=== PATIENT | female | born 1995 | race Asian ===

== ENCOUNTER 2019-08-19 18:26 | Emergency (ER) | payer SELFPAY ==
[~2019-08-19] VITALS: Ht 157.5 cm; Wt 52.2 kg
[2019-08-19] MEDS ORDERED: IV NS 0.9% 1,000 ML BAG IV ONE (19:00)
[2019-08-19] MEDS ORDERED: MORPHINE SULFATE INJ 2 MG/ML DISP.SYRIN IV ONE (19:00)
[2019-08-19] MEDS ORDERED: ONDANSETRON HCL/PF 4 MG/2 ML VIAL IVP ONE (19:00)
--- NOTE | 2019-08-19 19:00 | NUR ---
RLQ ABDOMINAL PAIN, GENERALIZED BODY ACHES, NO BM X 2 DAYS. PATIENT A/OX4, BREATHING EVEN AND UNLABORED, NO SOB NOTED, NEEDS ATTENDED, KEPT COMFORTABLE, CHANGED INTO GOWN, PATIENT WAS ABLE TO PROVIDE A URINE SAMPLE.
[2019-08-19 19:03] LABS: BASOPHILS % (AUTO) 0.3 % (0.0-2.0); EOSINOPHILS % (AUTO) 1.5 % (0.0-6.0); HEMATOCRIT 40 % (33-45); HEMOGLOBIN 13.4 g/dL (11.5-14.8); LYMPHOCYTES # (AUTO) 2.1 /CMM (0.8-4.8); LYMPHOCYTES % (AUTO) 34.6 % (20.0-44.0); MEAN CORPUSCULAR HGB CONC 33 g/dl (31.0-36.0); MEAN CORPUSCULAR VOLUME 91 fL (82-100); MONOCYTES # (AUTO) 0.4 /CMM (0.1-1.30); MONOCYTES % (AUTO) 6.4 % (2.0-12.0); NEUTROPHILS # (AUTO) 3.5 /CMM (1.8-8.9); NEUTROPHILS % (AUTO) 57.2 % (43.0-81.0); PLATELET COUNT (AUTO) 276 /CMM (150-450); RED BLOOD CELL COUNT(AUTO) 4.41 MIL/uL (4.0-5.2); WHITE BLOOD COUNT (AUTO) 6.2 K/uL (4.3-11.0)
[2019-08-19 19:10] LABS: APPEARANCE,URINE Clear (CLEAR); BACTERIA,URINE None seen /HPF (None Seen); BILIRUBIN,URINE Negative (NEGATIVE); BLOOD, URINE Negative Ery/uL (NEGATIVE); COLOR,URINE Yellow (YELLOW); KETONES,URINE Negative (NEGATIVE); LEUKOCYTE ESTERASE ,URINE Small (NEGATIVE); NITRITE, URINE Negative (NEGATIVE); PROTEIN,URINE Negative (NEGATIVE); RBC,URINE 0-2 /HPF (0-2); SQUAMOUS EPITHELIAL CELL,UR Few /HPF (None Seen); UGLUCOSE Negative (NEGATIVE); UROBILINOGEN,URINE 0.2 EU/dL (0.2)
--- NOTE | 2019-08-19 19:12 | NUR ---
PATIENT REFUSED TO MORPHINE AND ZOFRAN. EXPLAINED RISKS AND BENEFITS, STILL REFUSED.
[2019-08-19 19:18] LABS: BILIRUBIN,TOTAL 0.2 mg/dL (0.2-1.0); POTASSIUM 3.6 mmol/L (3.5-5.1); TOTAL PROTEIN, SERUM 8.1 g/dL (6.4-8.2)
[2019-08-19 19:22] LABS: CALCIUM, SERUM 9.2 mg/dL (8.5-10.1)
--- NOTE | 2019-08-19 19:37 | NUR ---
TOOK OVER PT CARE. PT AAOX4. DENIES PAIN. PT BROUGHT TO CT.
--- NOTE | 2019-08-19 19:41 | NUR ---
BROUGHT BACK FROM CT
--- NOTE | 2019-08-19 20:23 | NUR ---
IV removed. Catheter intact and site benign. Pressure and 4x4 applied to site. No bleeding noted.
--- NOTE | 2019-08-19 20:23 | NUR ---
Patient discharged to home in stable condition. Written and verbal after care instructions given. Patient verbalizes understanding of instruction and RX. Pt denies pain. Pt ambulated with steady gait. VSS.
[2019-08-19 20:24] VITALS: BP 128/69
== END 2019-08-19 20:31 | disposition home or self-care (01) ==
LOC: ER 18:26
DX: K59.00 Constipation, unspecified (principal)
CPT/HCPCS: 36415; 74176; 80048; 80076; 81001; 84703; 85025; 99284; J7030; 81000-TC